=== PATIENT | female | born 1960 | race Caucasian/White ===

== ENCOUNTER 2018-10-25 09:15 | Emergency (ER) | payer SELFPAY ==
[2018-10-25 09:32] VITALS: BP 131/97
--- NOTE | 2018-10-25 09:53 | UC ---
Complaint Female HPI - HPI Summary HPI Summary: 58 year old female presents with symptoms of dysuria and urgency over the past four days. She states if feels like previous urinary tract infections she has had. Denies associated fever, chills, nausea nor vomiting. No abdominal pain, no flank pain nor vaginal discharge. She denies exposure nor concern for std. - History Of Current Complaint Chief Complaint: UCGU Stated Complaint: URINARY Time Seen by Provider: 10/25/18 09:28 Hx Obtained From: Patient ?: No - LMP 3 years ago Onset/Duration: Gradual Onset, Lasting Days - ~4 days Timing: Constant Severity Initially: Mild Severity Currently: Mild Pain Intensity: 4 Radiates to: none Character: Burning, Cramping Aggravating Factor(s): Nothing Alleviating Factor(s): Nothing Associated Signs And Symptoms: Positive: Negative - Risk Factors Ectopic Risk Factor: Negative Ovarian Torsion Risk Factor: Negative - Allergies/Home Medications Allergies/Adverse Reactions: Allergies Allergy/AdvReac Type Severity Reaction Status Date / Time No Known Allergies Allergy Verified 10/25/18 09:33 Home Medications: Home Medications Amlodipine/Atorvastatin [Amlodipine-Atorvast 10-40 mg] 1 tab PO DAILY 10/25/18 [ History Confirmed 10/25/18] Atorvastatin* [Lipitor 20 MG*] 20 mg PO 1700 10/25/18 [History Confirmed ] Progesterone, Micronized [Progesterone] 200 mg PO DAILY 10/25/18 [History Confirmed 10/25/18] Quinapril HCl [Accupril] 20 mg PO DAILY 10/25/18 [History Confirmed 10/25/18] PMH/Surg Hx/FS Hx/Imm Hx Previously Healthy: Yes Cardiovascular History: Hypertension, Other - Hyperlipidemia - Surgical History Surgical History: None - Family History Known Family History: Positive: Hypertension - Social History Occupation: Employed Full-time - Nurse at [employer] Lives: With Family - significant other Alcohol Use: Occasionally Substance Use Type: None Smoking Status (MU): Never Smoked Tobacco Review of Systems All Other Systems Reviewed And Are Negative: Yes Constitutional: Positive: Negative Skin: Positive: Negative Eyes: Positive: Negative ENT: Positive: Negative Respiratory: Positive: Negative Cardiovascular: Positive: Negative Gastrointestinal: Positive: Negative Genitourinary: Positive: Dysuria, Frequency, Urgency Motor: Positive: Negative Neurovascular: Positive: Negative Musculoskeletal: Positive: Negative Neurological: Positive: Negative Psychological: Positive: Negative Is Patient Immunocompromised?: No Physical Exam Triage Information Reviewed: Yes Appearance: Well-Appearing, No Pain Distress Vital Signs: Initial Vital Signs Temp 97.4 F 10/25/18 09:28 Pulse 64 10/25/18 09:28 Resp 16 10/25/18 09:28 BP 131/97 10/25/18 09:28 Pulse Ox 100 10/25/18 09:28 Vital Signs Reviewed: Yes Eye Exam: Normal Eyes: Positive: Conjunctiva Clear ENT Exam: Normal Dental Exam: Normal Neck exam: Normal Respiratory Exam: Normal Cardiovascular Exam: Normal Abdomen Description: Positive: No Organomegaly, Soft, Other: - Mild suprapubic tenderness. Musculoskeletal Exam: Normal Neurological Exam: Normal Psychological Exam: Normal Skin Exam: Normal Complaint Female Dx - Course Course Of Treatment: Urine dip consistent with UTI, will treat. - Differential Dx/Diagnosis Provider Diagnosis: UTI (urinary tract infection), uncomplicated Discharge - Sign-Out/Discharge Documenting (check all that apply): Patient Departure All imaging exams completed and their final reports reviewed: No Studies - Discharge Plan Condition: Stable Disposition: HOME Prescriptions: Nitrofurantoin Monohyd/M-Cryst [Macrobid 100 mg Capsule] 100 mg PO BID 7 Days # 14 cap Patient Education Materials: Urinary Tract Infection in Women (ED) Referrals: No Primary Care Phys,NOPCP [Primary Care Provider] - Additional Instructions: Increase water intake. You may take a probiotic if you wish. Monitor for worsening symptoms including abdominal pain, flank pain, fever or nausea/ vomiting. - Billing Disposition and Condition Condition: STABLE Disposition: Home
== END 2018-10-25 10:14 | disposition home or self-care (01) ==
LOC: UCCORT 09:15
DX: N39.0 Urinary tract infection, site not specified (principal); I10 Essential (primary) hypertension; E78.5 Hyperlipidemia, unspecified
CPT/HCPCS: 81003; 87086; 99202; G0463